=== PATIENT | female | born 1990 | race Caucasian/White ===

== ENCOUNTER 2018-02-20 21:35 | Emergency (ER) | payer BC ==
[2018-02-20] MEDS ORDERED: Ketorolac 10 MG Tab PO ONE (21:36)
[2018-02-20] MEDS ORDERED: Ketorolac 60 MG/2 ML SDV IM ONE (21:48)
[2018-02-20] MEDS ORDERED: Promethazine 25 MG/ML SDV IM ONE (21:49)
[2018-02-20 21:54] VITALS: BP 141/70
--- NOTE | 2018-02-20 21:54 | EDM.PDOC ---
ED HPI GENERAL MEDICAL PROBLEM - General Chief Complaint: General Stated Complaint: HEAD ACHE Time Seen by Provider: 02/20/18 21:45 Source of Information: Reports: Patient History Limitations: Reports: No Limitations - History of Present Illness INITIAL COMMENTS - FREE TEXT/NARRATIVE: Patient presents today with complaints of a migraine headache for the last 6 hours. She states she hasn't had one this severe in 2 years. Has a history of migraine headaches that have caused leg weakness/numbness in the past. Has had significant work up for them. Tonight, it does feel similar to that. Has nausea, vomited several times. Sound sensitivity. Does feel some arm numbness. Has taken Excedrin migraine, nyquil and tylenol. Onset: Today, Sudden Duration: Hour(s): Location: Reports: Head Quality: Reports: Throbbing Severity: Moderate Improves with: Reports: None Associated Symptoms: Reports: Headaches, Nausea/Vomiting. Denies: Confusion, Shortness of Breath Treatments [employer]: Reports: Acetaminophen, Other Medication(s) - Related Data Allergies Allergy/AdvReac Type Severity Reaction Status Date / Time No Known Allergies Allergy Verified 02/20/18 21:40 Home Meds: Home Meds Venlafaxine [Effexor] 75 mg PO DAILY 02/20/18 [History] Past Medical History Neurological History: Reports: Migraines Psychiatric History: Reports: Anxiety, Depression Social & Family History - Tobacco Use Smoking Status *Q: Current Every Day Smoker Years of Tobacco use: 5 Packs/Tins Daily: 1 - Recreational Drug Use Recreational Drug Use: No ED ROS GENERAL - Review of Systems Review Of Systems: See Below Constitutional: Denies: Fever, Chills, Malaise, Weakness, Decreased Appetite HEENT: Reports: Rhinitis. Denies: Ear Pain, Throat Pain Respiratory: Denies: Shortness of Breath, Cough Cardiovascular: Denies: Chest Pain, Edema, Lightheadedness Endocrine: Reports: Fatigue GI/Abdominal: Reports: Nausea, Vomiting. Denies: Abdominal Pain : Reports: No Symptoms Musculoskeletal: Reports: No Symptoms Skin: Reports: No Symptoms Neurological: Reports: Headache, Numbness, Tingling. Denies: Difficulty Walking , Weakness, Change in Speech, Gait Disturbance Psychiatric: Reports: No Symptoms ED EXAM, GENERAL - Physical Exam Exam: See Below Exam Limited By: No Limitations General Appearance: Alert, WD/WN, No Apparent Distress Eye Exam: Bilateral Eye: EOMI, PERRL Ears: Normal External Exam, Normal TMs Nose: Normal Inspection, Normal Mucosa Throat/Mouth: Normal Inspection, Normal Oropharynx Head: Normocephalic Neck: Normal Inspection, Supple, Non-Tender Respiratory/Chest: No Respiratory Distress, Lungs Clear, Normal Breath Sounds Cardiovascular: Regular Rate, Rhythm GI/Abdominal: Normal Bowel Sounds, Soft, Non-Tender Neurological: Alert, Oriented Skin Exam: Warm, Dry Departure - Departure Time of Disposition: 21:56 Disposition: Home, Self-Care 01 Condition: Good Clinical Impression: Migraine - Discharge Information Referrals: Provider,Unknown [Primary Care Provider] - Additional Instructions: 1. Rest 2. Push fluids 3. Toradol or tylenol for headache 4. Use Zofran as needed for nausea 5. Follow up if any ongoing concern
[2018-02-20] MEDS ORDERED: Take Home: Ketorolac 10 MG Tab, 4 Tab Pack PO ONE (21:56)
== END 2018-02-20 22:05 | disposition home or self-care (01) ==
LOC: CC.ED 21:35
DX: G43.909 Migraine, unspecified, not intractable, without status migrainosus (principal); F41.9 Anxiety disorder, unspecified; F32.9 Major depressive disorder, single episode, unspecified; F17.210 Nicotine dependence, cigarettes, uncomplicated; Z79.899 Other long term (current) drug therapy
CPT/HCPCS: 96372; 99282; A9270-GY; J1885; J2550

== ENCOUNTER 2022-10-29 21:25 | Emergency (ER) | payer OTHER ==
[2022-10-29] MEDS ORDERED: Sodium Chloride 0.9% 10 ML Syringe FLUSH PRN (21:46)
[2022-10-29] MEDS ORDERED: Furosemide 40 MG/4 ML VIAL IVPUSH ONE (21:47)
[2022-10-29] MEDS ORDERED: Pantoprazole 40 MG Vial IVPUSH ONE (22:20)
[2022-10-29 22:25] LABS: PTT,PARTIAL THROMBOPLSTIN TIME 33.2 SEC (23.2-32.3)
[2022-10-29] MEDS ORDERED: LORazepam 2 MG/ML Syringe IVPUSH ONE (22:50)
[2022-10-29] MEDS ORDERED: Lidocaine 1% 30 ML SDV INJECT ONE (22:51)
[2022-10-29] MEDS ORDERED: Lidocaine 1% 5 ML VIAL ONE (23:37)
[2022-10-29] MEDS ORDERED: Sodium Chloride 0.9% 10 ML Sterile Syringe ONE (23:46)
[2022-10-29] MEDS ORDERED: Furosemide 100 MG/10 ML SDV IVPUSH ONE (23:50)
[2022-10-30] MEDS ORDERED: Sodium Chloride 0.9% 250 ML ONE (00:13)
[2022-10-30] MEDS ORDERED: Furosemide 100 MG/10 ML SDV ONE (00:20)
[2022-10-30] MEDS ORDERED: Sodium Chloride 0.9% 250 ML IV SCH (01:00)
[2022-10-30] MEDS ORDERED: LORazepam 2 MG/ML Syringe IVPUSH ONE (01:00)
[2022-10-30 01:27] VITALS: BP 109/61; PULSE 114
[2022-10-30] MEDS ORDERED: Lidocaine 2% HCl 6 ML Jel ONE (02:01)
== END 2022-10-30 02:20 ==
LOC: CC.ED 21:25
DX: K92.2 Gastrointestinal hemorrhage, unspecified (principal); I50.9 Heart failure, unspecified; T81.40XA Infection following a procedure, unspecified, initial encounter; Z20.822 Contact with and (suspected) exposure to COVID-19
CPT/HCPCS: 36415; 36430; 51702; 71045; 80053; 81001; 81025; 83735; 83880; 84484; 85025; 85379; 85730; 86850; 86900; 86901; 86920; 86922; 93005; 93010; 96361; 96372; 96374; 96375; 96376; 99285; 99285-25; A9270-GY; C9113; J1940; J2060; J3430; J7050; P9016; U0002

== ENCOUNTER 2022-11-01 23:53 | Emergency (ER) | payer OTHER ==
[2022-11-02] VITALS: BP 123/63; PULSE 111
[2022-11-02] MEDS ORDERED: LORazepam 2 MG/ML Syringe IVPUSH ONE (00:09)
[2022-11-02] MEDS ORDERED: LORazepam 2 MG/ML Syringe IM ONE (00:43)
[2022-11-02 01:05] LABS: PTT,PARTIAL THROMBOPLSTIN TIME 26.7 SEC (23.2-32.3)
[2022-11-02] MEDS ORDERED: Azithromycin 250 MG Tab PO ONE (01:32)
[2022-11-02] MEDS ORDERED: Take Home: Azithromycin 250 MG, 2 Tab Pack PO ONE (01:33)
[2022-11-02] MEDS ORDERED: Furosemide 80 MG Tab PO ONE (01:42)
== END 2022-11-02 01:59 | disposition home or self-care (01) ==
LOC: CC.ED 23:53
DX: J18.9 Pneumonia, unspecified organism (principal); I50.9 Heart failure, unspecified; Z79.01 Long term (current) use of anticoagulants; Z79.899 Other long term (current) drug therapy
CPT/HCPCS: 36415; 71045; 80053; 83735; 83880; 84484; 85025; 85610; 85730; 93005; 93010; 96372; 99284; 99285; A9270-GY; J2060

== ENCOUNTER 2022-12-25 11:37 | Inpatient (IN) | payer OTHER ==
[2022-12-25] MEDS ORDERED: Ondansetron 4 MG/2 ML SDV IV PRN (14:45)
[2022-12-25] MEDS ORDERED: Ondansetron 4 MG Tab.DIS PO PRN ×2 (14:45→16:34)
[2022-12-25] MEDS ORDERED: Sodium Chloride 0.9% 10 ML Syringe FLUSH PRN (14:45)
[2022-12-25 14:57] LABS: CHLORIDE,CL 98 mEq/L (98-106); SODIUM,NA 136 mEq/L (136-145)
[2022-12-25 15:02] LABS: ESTIMATED GFR 78 mL/min (>=60)
[2022-12-25] MEDS: Furosemide 40 MG/4 ML VIAL IVPUSH SCH (16:43)
[2022-12-25] MEDS: Metoprolol Succinate 25 MG Tab.ER PO SCH (19:42)
[2022-12-25] MEDS: Apixaban 5 MG Tab PO SCH (19:42)
[2022-12-25] MEDS ORDERED: BUPROPION 75 MG PO SCH (20:00)
[2022-12-25] MEDS: LORazepam 0.5 MG Tab PO PRN (22:49)
[2022-12-26] MEDS: Pantoprazole 40 MG Tab.CR PO SCH (06:15)
[2022-12-26] MEDS: Furosemide 40 MG/4 ML VIAL IVPUSH SCH ×2 (07:48→16:47)
[2022-12-26] MEDS: Bumetanide 1 MG Tab PO SCH (07:51)
[2022-12-26] MEDS: Apixaban 5 MG Tab PO SCH ×2 (07:51→20:01)
[2022-12-26] MEDS: Spironolactone 25 MG Tab PO SCH (07:52)
[2022-12-26] MEDS ORDERED: Potassium Chloride 10 MEQ Tab.ER PO SCH (08:00)
[2022-12-26] MEDS: Lisinopril 5 MG Tab PO SCH (08:08)
[2022-12-26] MEDS: Venlafaxine 75 MG Cap.ER PO SCH (08:10)
[2022-12-26] MEDS: Metoprolol Succinate 25 MG Tab.ER PO SCH ×2 (08:10→20:01)
[2022-12-26] MEDS ORDERED: Furosemide 40 MG/4 ML VIAL IVPUSH ONE (08:33)
[2022-12-26] MEDS ORDERED: Albumin 25% 25 GM in Premix Bag 1 BAG IV ONE (10:30)
[2022-12-26] MEDS: Potassium Chloride 10 MEQ Tab.ER PO SCH (16:48)
[2022-12-26] MEDS: buPROPion 150 MG Tab.ER PO SCH (20:00)
[2022-12-26] MEDS: LORazepam 0.5 MG Tab PO PRN (21:34)
[2022-12-27] MEDS: Pantoprazole 40 MG Tab.CR PO SCH (06:00)
[2022-12-27] MEDS: Metoprolol Succinate 25 MG Tab.ER PO SCH ×2 (08:12→20:02)
[2022-12-27] MEDS: Venlafaxine 75 MG Cap.ER PO SCH (08:12)
[2022-12-27] MEDS: Apixaban 5 MG Tab PO SCH ×2 (08:13→20:02)
[2022-12-27] MEDS: Potassium Chloride 10 MEQ Tab.ER PO SCH ×2 (08:13→17:24)
[2022-12-27] MEDS: Bumetanide 1 MG Tab PO SCH ×2 (08:13→13:09)
[2022-12-27] MEDS: Furosemide 40 MG/4 ML VIAL IVPUSH SCH ×2 (08:14→15:55)
[2022-12-27] MEDS: Spironolactone 25 MG Tab PO SCH (08:14)
[2022-12-27] MEDS: Lisinopril 5 MG Tab PO SCH (08:14)
[2022-12-27] MEDS: buPROPion 150 MG Tab.ER PO SCH (20:01)
[2022-12-27] MEDS: Temazepam 15 MG Cap PO PRN (23:03)
[2022-12-28] MEDS: LORazepam 0.5 MG Tab PO PRN (03:17)
[2022-12-28] MEDS: Pantoprazole 40 MG Tab.CR PO SCH (06:06)
[2022-12-28] MEDS: Potassium Chloride 10 MEQ Tab.ER PO SCH ×2 (07:40→17:40)
[2022-12-28] MEDS: Apixaban 5 MG Tab PO SCH ×2 (07:41→19:46)
[2022-12-28] MEDS: Lisinopril 5 MG Tab PO SCH (07:42)
[2022-12-28] MEDS: Metoprolol Succinate 25 MG Tab.ER PO SCH ×2 (07:42→19:45)
[2022-12-28] MEDS: Venlafaxine 75 MG Cap.ER PO SCH (07:43)
[2022-12-28] MEDS: Spironolactone 25 MG Tab PO SCH (07:43)
[2022-12-28] MEDS: Furosemide 40 MG/4 ML VIAL IVPUSH SCH ×2 (07:44→15:19)
[2022-12-28] MEDS: Bumetanide 1 MG Tab PO SCH ×2 (07:44→11:52)
[2022-12-28] MEDS ORDERED: Iopamidol 755 Mg/ML 100 ML Bottle IVPUSH ONE (16:03)
[2022-12-28] MEDS: buPROPion 150 MG Tab.ER PO SCH (19:46)
[2022-12-28] MEDS: Temazepam 15 MG Cap PO PRN (22:25)
[2022-12-29] MEDS: Pantoprazole 40 MG Tab.CR PO SCH (06:20)
[2022-12-29] MEDS: Venlafaxine 75 MG Cap.ER PO SCH (07:19)
[2022-12-29] MEDS: Bumetanide 1 MG Tab PO SCH ×2 (07:19→11:53)
[2022-12-29] MEDS: Spironolactone 25 MG Tab PO SCH (07:19)
[2022-12-29] MEDS: Apixaban 5 MG Tab PO SCH ×2 (07:19→19:33)
[2022-12-29] MEDS: Lisinopril 5 MG Tab PO SCH (07:23)
[2022-12-29] MEDS: Metoprolol Succinate 25 MG Tab.ER PO SCH ×2 (07:33→19:33)
[2022-12-29] MEDS: Potassium Chloride 10 MEQ Tab.ER PO SCH ×2 (07:34→17:54)
[2022-12-29] MEDS: Furosemide 40 MG/4 ML VIAL IVPUSH SCH (07:34)
[2022-12-29] MEDS ORDERED: Magnesium Sulfate/Water 2 GM in Premix Bag 1 BAG IV ONE (09:45)
[2022-12-29] MEDS: buPROPion 150 MG Tab.ER PO SCH (12:04)
[2022-12-29] MEDS: LORazepam 0.5 MG Tab PO PRN (19:34)
[2022-12-29] MEDS: Temazepam 15 MG Cap PO PRN (22:36)
[2022-12-30] MEDS: Pantoprazole 40 MG Tab.CR PO SCH (06:43)
[2022-12-30] MEDS: Apixaban 5 MG Tab PO SCH (07:46)
[2022-12-30] MEDS: Bumetanide 1 MG Tab PO SCH ×2 (07:47→11:47)
[2022-12-30] MEDS: Venlafaxine 75 MG Cap.ER PO SCH (07:49)
[2022-12-30] MEDS: buPROPion 150 MG Tab.ER PO SCH (07:51)
[2022-12-30] MEDS: Metoprolol Succinate 25 MG Tab.ER PO SCH (07:53)
[2022-12-30] MEDS: Potassium Chloride 10 MEQ Tab.ER PO SCH (07:54)
[2022-12-30] MEDS: Lisinopril 5 MG Tab PO SCH (07:55)
[2022-12-30] MEDS: Spironolactone 25 MG Tab PO SCH (07:56)
[2022-12-30 12:17] VITALS: BP 106/69; PULSE 77
== END 2022-12-30 14:30 | disposition home or self-care (01) | DRG 291 ==
LOC: CC.MS 14:24
PROVIDERS: ADMIT Nurse Practitioner; ATTEND Nurse Practitioner
DX: I50.9 Heart failure, unspecified (principal); K72.00 Acute and subacute hepatic failure without coma; R18.8 Other ascites; E83.42 Hypomagnesemia; E87.6 Hypokalemia; T50.905A Adverse effect of unspecified drugs, medicaments and biological substances, initial encounter; E88.09 Other disorders of plasma-protein metabolism, not elsewhere classified; I42.8 Other cardiomyopathies; D53.9 Nutritional anemia, unspecified; F41.9 Anxiety disorder, unspecified; F32.A Depression, unspecified; Z98.890 Other specified postprocedural states; Z79.01 Long term (current) use of anticoagulants; Z79.899 Other long term (current) drug therapy; Z87.19 Personal history of other diseases of the digestive system
CPT/HCPCS: 36415; 70551; 71046; 74177; 76705; 80053; 81001; 82140; 83735; 83880; 84484; 85025; 85610; 93005; 93306; A9270-GY; J1940; J3475; P9047; Q9967

== ENCOUNTER 2024-07-26 14:13 | Emergency (ER) | payer OTHER ==
[2024-07-26] MEDS: diphenhydrAMINE 50 MG/ML SDV IVPUSH ONE (14:38)
[2024-07-26] MEDS: Metoclopramide 10 MG/2 ML SDV IVPUSH ONE (14:38)
[2024-07-26] MEDS: Ondansetron 4 MG/2 ML SDV IVPUSH ONE (14:41)
[2024-07-26 14:47] VITALS: BP 105/58; PULSE 108
[2024-07-26 14:49] LABS: BASOPHILS ABSOLUTE AUTO 0.04 10^3/uL (0.00-0.50); BASOPHILS PERCENT AUTO 0.4 % (0-1); EOSINOPHILS ABSOLUTE AUTO 0.21 10^3/uL (0.00-1.50); EOSINOPHILS PERCENT AUTO 2.2 % (0-6); HEMOGLOBIN 14.8 g/dL (12.0-16.0); IMMATURE GRAN ABSOLUTE AUTO 0.05 10^3/uL (0.00-0.49); IMMATURE GRAN PERCENT AUTO 0.5 % (0.0-4.9); LYMPHOCYTES ABSOLUTE AUTO 1.93 10^3/uL (0.60-5.00); LYMPHOCYTES PERCENT AUTO 19.8 % (24-44); MEAN CORPUSCULAR HEMOGLOBIN 30.6 pg (27.0-32.0); MEAN CORPUSCULAR HGB CONC 32.9 g/dL (32.0-36.0); MONOCYTES ABSOLUTE AUTO 0.89 10^3/uL (0.00-1.50); MONOCYTES PERCENT AUTO 9.1 % (0-10); NEUTROPHILS ABSOLUTE AUTO 6.63 x10^3/uL (1.80-8.00); PLATELET COUNT,PLT 236 10^3/uL (150-400); RED BLOOD CELL COUNT 4.84 x10^6/uL (4.00-5.50); WHITE BLOOD CELL COUNT,WBC 9.8 10^3/uL (4.0-11.0)
[2024-07-26 14:58] LABS: APPEARANCE,URINE CLEAR (CLEAR); BILIRUBIN,URINE NEGATIVE (NEGATIVE); COLOR,URINE YELLOW (YELLOW); GLUCOSE,URINE 500 mg/dL (NEGATIVE); KETONES,URINE NEGATIVE (NEGATIVE); LEUKOCYTE ESTERASE,URINE NEGATIVE (NEGATIVE); NITRITE,URINE NEGATIVE (NEGATIVE); OCCULT BLOOD,URINE NEGATIVE (NEGATIVE); PROTEIN,URINE NEGATIVE (NEGATIVE); UROBILINOGEN,URINE 0.2 EU/dL (0.2-1.0)
[2024-07-26 15:11] LABS: ALBUMIN 4.3 g/dL (3.4-5.0); BILIRUBIN TOTAL 0.4 mg/dL (0.0-1.0); CALCIUM 9.9 mg/dL (8.4-10.1); EST CRCL DRUG DOSING (CG) 82.23 mL/min; MAGNESIUM 2.1 mg/dL (1.8-2.4); PROTEIN TOTAL,TP 8.4 g/dL (6.4-8.2)
[2024-07-26] MEDS: Ketorolac 30 MG/ML SDV IVPUSH ONE (15:46)
== END 2024-07-26 15:52 | disposition home or self-care (01) ==
LOC: CC.ED 14:13
DX: G43.109 Migraine with aura, not intractable, without status migrainosus (principal); Z79.01 Long term (current) use of anticoagulants; Z79.899 Other long term (current) drug therapy
CPT/HCPCS: 36415; 70450; 80053; 81003; 83735; 83880; 84484; 85025; 85730; 93005; 93010; 96374; 96375; 99284; 99284-25; J1200; J1885; J2765